=== PATIENT | female | born 1995 | race Caucasian/White ===

== ENCOUNTER 2017-07-28 11:28 | Emergency (ER) | payer MEDICAID ==
[~2017-07-28] VITALS: Ht 162.6 cm; Wt 51.1 kg
[~2017-07-28 11:28] MED LIST: BECL8.7A7 INH; FLUO10CA13 PO
[2017-07-28 11:31] VITALS: BP 108/74
[2017-07-28] MEDS ORDERED: ALBU0.63 NEB (12:06)
[2017-07-28] MEDS: ALBUTEROL/IPRATROPIUM 2.5MG/0.5MG, 3 ML NPPB SCH ×2 (12:20→12:32)
== END 2017-07-28 12:42 | disposition home or self-care (01) ==
LOC: ED 12:21
DX: J45.41 Moderate persistent asthma with (acute) exacerbation (principal); A60.00 Herpesviral infection of urogenital system, unspecified
CPT/HCPCS: 71046; 94640; 99284; J7512; J7620

== ENCOUNTER 2018-02-19 10:41 | Emergency (ER) | payer MEDICAID ==
[~2018-02-19] VITALS: Ht 162.6 cm; Wt 52.3 kg
[~2018-02-19 10:41] MED LIST changes: +ALBU0.63 NEB
[2018-02-19 11:11] VITALS: BP 115/81
== END 2018-02-19 11:54 | disposition home or self-care (01) ==
LOC: ED 11:20
DX: J45.31 Mild persistent asthma with (acute) exacerbation (principal); J02.8 Acute pharyngitis due to other specified organisms; B97.89 Other viral agents as the cause of diseases classified elsewhere
CPT/HCPCS: 99283

== ENCOUNTER 2018-05-10 14:52 | Emergency (ER) | payer MEDICAID, OTHER ==
[~2018-05-10] VITALS: Ht 162.6 cm; Wt 55.2 kg
[2018-05-10] MEDS ORDERED: FAMOTIDINE 20 MG TABLET ONE (15:13)
[2018-05-10] MEDS ORDERED: DIPHENHYDRAMINE 50 MG/ML, 1ML ONE (15:13)
--- NOTE | 2018-05-10 15:22 | NUR ---
PT WAS CLEANING OUT THE FRIDGE, SHORTLY AFTER STARTED HAVING SWELLING IN THE RIGHT EYE, AND ITCHING IN HER THROAT. 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
[2018-05-10] MEDS ORDERED: FAMOTIDINE 20 MG TABLET PO ONE (15:30)
[2018-05-10] MEDS ORDERED: DIPHENHYDRAMINE 50 MG/ML, 1ML IM ONE (15:30)
[2018-05-10] MEDS ORDERED: ALBUTEROL/IPRATROPIUM 2.5MG/0.5MG, 3 ML NPPB ONE (16:00)
[2018-05-10] MEDS ORDERED: ALBUTEROL/IPRATROPIUM 2.5MG/0.5MG, 3 ML ONE (16:04)
--- NOTE | 2018-05-10 17:00 | NUR ---
RECEIVED REPORT AND ASSUMED PT. CARE. PT. IS RESTING WITHOUT CONCERNS.
[2018-05-10 17:12] VITALS: BP 102/57
--- NOTE | 2018-05-10 17:35 | NUR ---
TASK RN: PT NOT IN ROOM, LEFT W/O RECIEVING D/C INSTRUCTIONS.
== END 2018-05-10 17:36 | disposition home or self-care (01) ==
LOC: ED 17:15
DX: T78.40XA Allergy, unspecified, initial encounter (principal); J98.01 Acute bronchospasm; X58.XXXA Exposure to other specified factors, initial encounter
CPT/HCPCS: 94640; 96372; 99283; J1200; J7512; J7620

== ENCOUNTER 2019-01-12 20:43 | Outpatient (CLI) | payer MEDICAID ==
[2019-01-12 20:50] VITALS: BP 114/72
[2019-01-12] MEDS ORDERED: LACTATED RINGERS 1,000 ML IV SCH (22:33)
[2019-01-12] MEDS ORDERED: OXYTOCIN 30U/ 0.9% NaCL 500ML 500 ML IV ONE (22:33)
[2019-01-12] MEDS ORDERED: D5%-LACTATED RINGERS 1,000 ML IV SCH (22:33)
[2019-01-12] MEDS ORDERED: MISOPROSTOL 25 MCG TABLET VG PRN (23:00)
[2019-01-12] MEDS ORDERED: CALCIUM CARBONATE 500 MG TAB.CHEW PO PRN (23:00)
[2019-01-12] MEDS ORDERED: TERBUTALINE 1 MG/ML, 1ML IVPush PRN (23:00)
[2019-01-12] MEDS ORDERED: TERBUTALINE 1 MG/ML, 1ML SQ PRN (23:00)
[2019-01-12] MEDS ORDERED: FENTANYL PF 100 MCG/2ML IV PRN (23:00)
[2019-01-12] MEDS ORDERED: SODIUM CITRATE/CITRIC ACID 30 ML UDC PO PRN (23:00)
[2019-01-12] MEDS ORDERED: FENTANYL PF 100 MCG/2ML IVPush PRN (23:00)
[2019-01-12] MEDS ORDERED: ONDANSETRON 2MG/ML, 2ML IVPush PRN (23:00)
[2019-01-12] MEDS ORDERED: METOCLOPRAMIDE 5 MG/ML, 2ML IVPush PRN (23:00)
== END 2019-01-12 21:22 | disposition home or self-care (01) ==
LOC: LDOP 20:43
PROVIDERS: ATTEND Obstetrics & Gynecology
DX: O26.893 Other specified pregnancy related conditions, third trimester (principal); R10.9 Unspecified abdominal pain; Z3A.32 32 weeks gestation of pregnancy
CPT/HCPCS: 59025; 99211; G0463